=== PATIENT | female | born 1945 | race Caucasian/White ===

== ENCOUNTER 2022-07-16 13:45 | Emergency (ER) | payer MEDICARE ==
[~2022-07-16] VITALS: Ht 167.6 cm; Wt 78.1 kg
[2022-07-16] MEDS ORDERED: CETI10CH PO (14:03)
[2022-07-16] MEDS ORDERED: PRED20TA PO (14:50)
[2022-07-16] MEDS ORDERED: AMOX875T2 PO (14:50)
[2022-07-16] MEDS ORDERED: FLON27.5 NARES (14:50)
[2022-07-16 15:13] VITALS: BP 141/65
== END 2022-07-16 15:15 | disposition home or self-care (01) ==
LOC: M ED 13:45
DX: J01.00 Acute maxillary sinusitis, unspecified (principal); J45.909 Unspecified asthma, uncomplicated; Z79.899 Other long term (current) drug therapy; J30.2 Other seasonal allergic rhinitis

== ENCOUNTER 2022-08-29 11:44 | Emergency (ER) | payer MEDICARE ==
[~2022-08-29] VITALS: Ht 167.6 cm; Wt 77.3 kg
[~2022-08-29 11:44] MED LIST: AMOX875T2 PO; CETI10CH PO; FLON27.5 NARES; PRED20TA PO
[2022-08-29] MEDS ORDERED: ALBU2.5V10 (11:56)
[2022-08-29] MEDS ORDERED: LORA-674 PO (11:56)
[2022-08-29] MEDS ORDERED: ALBU8.5H (11:56)
[2022-08-29] MEDS ORDERED: ALB2.5NEB NEB (14:42)
[2022-08-29] MEDS ORDERED: VENTAER INH (14:42)
[2022-08-29] MEDS ORDERED: BENZ200C70 PO (14:44)
[2022-08-29] MEDS ORDERED: BENZONATATE 100MG CAPSULE PO ONE (14:45)
[2022-08-29] MEDS ORDERED: predniSONE 20 MG TAB PO ONE (14:45)
[2022-08-29 14:52] VITALS: BP 138/65
== END 2022-08-29 14:54 | disposition home or self-care (01) ==
LOC: M ED 11:44
DX: J06.9 Acute upper respiratory infection, unspecified (principal); B34.8 Other viral infections of unspecified site; J45.909 Unspecified asthma, uncomplicated; Z87.891 Personal history of nicotine dependence
CPT/HCPCS: 71046; 87486; 87581; 87633; 87798; 99283; J7512